=== PATIENT | female | born 1990 | race Caucasian/White ===

== ENCOUNTER 2016-08-22 13:17 | Inpatient (IN) | payer BC ==
[2016-08-22] MEDS ORDERED: Aluminum Hydroxide/Magnesium Hydroxide/Simethicone Susp 30 ML Cup PO PRN (15:27)
[2016-08-22] MEDS ORDERED: Ondansetron 4 MG/2 ML SDV IVPUSH PRN (15:27)
[2016-08-22] MEDS ORDERED: Lidocaine 1% 50 ML MDV INJECT PRN (15:27)
[2016-08-22] MEDS ORDERED: Nalbuphine 20 MG/1 ML Amp IVPUSH PRN (15:27)
[2016-08-22] MEDS ORDERED: Lactated Ringers 1,000 ML IV SCH (15:30)
[2016-08-22] MEDS ORDERED: Oxytocin/Lactated Ringers 10 UNIT/1,000 ML BAG IV SCH ×2 (15:30→15:45)
--- NOTE | 2016-08-22 21:27 | PCM.LDHP ---
L&D History of Present Illness - General Date of Service: 08/22/16 Admit Problem/Dx: Patient Status Order with Admit Dx/Problem 08/22/16 15:28 Patient Status [ADT] Routine Admission Diagnosis/Problem Admission Diagnosis/Problem 08/22/16 21:17 37-6/7 week intrauterine , spontaneous rupture membranes, early labor Source of Information: Patient History Limitations: Reports: No limitations - History of Present Illness Introduction:: History of present illness: Patient is a 6-year-old 1 para 0 white female who is set at -2017 placer not 37-6/7 6 gestational age upon admission to labor and delivery. Her CEDRIC is set by an early ultrasound on 01/13/2016 at 6- 1/7 weeks gestation. Last menstrual period was not definite on 11/29/2015. Patient has had 3 other ultrasounds supporting her earliest ultrasound dates. She was seen in clinic with complaints of moistness near the vagina. Amniosure was positive and visualization of the vagina and perineum was positive for of amniotic fluid. She is admitted for labor and the Pitocin was started. SECOND BUTLER history 1 para 0 CEDRIC 09/06/2016. Patient had group B strep screen which was negative. Had dropped to hemoglobin at second trimester but was noted to have a hemoglobin 13.1 on 08/11/2016. Fluid vaccine was administered on 03/01/2016. She plans to nurse. T. dap was given on 06/22/2016. Patient's first visit was on 03/01/2016. She was seen on regular basis and made good fundal height growth. Her weight increased from 181 pounds 215.6 pounds 4 834.6 pound weight gain. Laboratory testing and shows blood which is O+, negative and risking. Platelets of her spelled as over 227. She is rubella immune. RPR is nonreactive. Hepatitis B and HIV assays are negative. GC and Chlamydia were negative. Second trimester testing showed a one-hour gtt. which was elevated at 155. Her 3 her GTT however was normal at 78 at fasting, 147 at one hour, 1:15 at 2R and 45 at 3 hour. Her platelet count on 08/11/2001 was 238,000. Group B strep screen was negative. Allergies: shellfish Medications: 1. Ferrous sulfate 325 mg per day 2. Multivitamins daily 3 the folic acid 1 mg daily Past medical history: Unremarkable. Past surgical history: 1. Cyst removed from her cervix in 2009 2. Tonsillectomy 1998 Family history: 2 brothers age 23 and 18 a live and well. Mother age 56 alive and well. Father age 53 alive and well. Maternal grandmother age 70 a live and well except for depression/dementia. Maternal grandmother age 85 alive and well. Paternal grandmother age 73 alive and well. Paternal grandfather age 73 her condition, history of smoking. No , anesthesia, bleeding or blood clotting comes noted in the family. Social history: Patient is . Lives in [place]. is Ben[place]. She denies any significant loss of alcohol, drugs or tobacco. Review of systems: Skin-negative Respiratory-negative Cardiovascular-negative Breasts-changes consistent with GI-negative -changes consistent with Neurologic-negative Musculoskeletal-negative. Physical exam On last evaluation in clinic earlier today patient's height was 5 feet 10 her weight was 215 pounds. heart rate is 1:30. Pregravid weight was 181. In general patient is a well-developed, well-nourished, pleasant thin of stated age in no acute distress. She is alert and oriented x3 and appears stated age. Skin is warm and dry without lesions HEENT, neck and back within normal is Lungs are clear with good breath sounds in all rodriguez. Cardiovascular exam shows regular rate and rhythm without murmurs. Breast exam is deferred at this time-was done at first and was found to be normal. Abdomen shows fundal height consistent with dates. Baby in a vertex presentation. Cervix on admission to the hospital was 4 cm, 90% effaced, soft, midposition, - 3 station. Extremities and neurological exam grossly within normal limits. - Related Data Allergies/Adverse Reactions: Allergies Allergy/AdvReac Type Severity Reaction Status Date / Time shellfish derived Allergy Severe Other Verified 08/22/16 15:27 Home Medications: Home Meds Folic Acid 0.8 mg PO DAILY 08/22/16 [History] Iron 18 mg PO BEDTIME 08/22/16 [History] PNV95/Ferrous Fumarate/FA [ Tablet] 1 each PO DAILY 08/22/16 [History] Past Medical History SECOND BUTLER History: Reports: , Other (see below) Other OB/BYN History: cyst removed from cervix 2009 - Past Surgical History HEENT Surgical History: Reports: Tonsillectomy Social & Family History - Family History Family Medical History: Noncontributory - Tobacco Use Smoking Status *Q: Never Smoker - Caffeine Use Caffeine Use: Reports: Other Other Caffeine Use: minimal - Recreational Drug Use Recreational Drug Use: No H&P Review of Systems - Review of Systems: Review Of Systems: See Below L&D Exam - Exam Exam: See Below - Vital Signs Vital Signs: Last Vital Signs Temp 37.4 C 08/22/16 15:27 Pulse 117 H 08/22/16 15:27 Resp 18 08/22/16 15:27 BP 122/86 08/22/16 15:27 Pulse Ox Weight: 97.84 kg - Patient Data Lab Results last 24 hrs: Laboratory Results - last 24 hr 08/22/16 08/22/16 08/22/16 Range/Units 13:52 14:30 16:00 WBC 8.97 (3.98-10.04) K/mm3 RBC 4.30 (3.98-5.22) M/mm3 Hgb 12.2 (11.2-15.7) gm/L Hct 36.5 (34.1-44.9) % MCV 84.9 (79.4-94.8) fl MCH 28.4 (25.6-32.2) pg MCHC 33.4 (32.2-35.5) g/dl RDW Std Deviation 50.3 H (36.4-46.3) fL Plt Count 253 (182-369) K/mm3 MPV 11.1 (9.4-12.3) fl Neut % (Auto) 76.2 H (34.0-71.1) % Lymph % (Auto) 14.9 L (19.3-51.7) % Schleicher % (Auto) 7.8 (4.7-12.5) % Eos % (Auto) 0.7 (0.7-5.8) Baso % (Auto) 0.2 (0.1-1.2) % Neut # (Auto) 6.83 H (1.56-6.13) K/mm3 Lymph # (Auto) 1.34 (1.18-3.74) K/mm3 Schleicher # (Auto) 0.70 H (0.24-0.36) K/mm3 Eos # (Auto) 0.06 (0.04-0.36) K/mm3 Baso # (Auto) 0.02 (0.01-0.08) K/mm3 Urine Color Light yellow (Yellow) Urine Appearance Clear (Clear) Urine pH 6.0 (5.0-8.0) Ur Specific Michael 1.010 (1.005-1.030) Urine Protein Negative (Negative) Urine Glucose (UA) Negative (Negative) Urine Ketones Negative (Negative) Urine Occult Blood Negative (Negative) Urine Nitrite Negative (Negative) Urine Bilirubin Negative (Negative) Urine Urobilinogen 0.2 (0.2-1.0) Ur Leukocyte Esterase Trace H (Negative) Membrane Rupture Positive H Result Diagrams: 08/22/16 16:00 Problem List Initiated/Reviewed/Updated: Yes Orders Last 24hrs: Active Orders 24 hr Category Date Time Status Patient Status [ADT] Routine ADT 08/22/16 15:28 Active Activity as Tolerated [RC] PFP Care 08/22/16 15:27 Active Communication Order [RC] ASDIRECTED Care 08/22/16 15:27 Active Notify Provider [RC] PFP Care 08/22/16 15:27 Active Notify Provider [RC] PRN Care 08/22/16 15:27 Active Vital Signs [RC] PER UNIT ROUTINE Care 08/22/16 15:27 Active Clear Liquid Diet [DIET] Diet 08/22/16 Lunch Active Alum Hydrox/Mag Hydrox/Simeth [Mag-Al Plus] Med 08/22/16 15:27 Active 30 ml PO Q8H PRN Lactated Ringers [Ringers, Lactated] 1,000 ml Med 08/22/16 15:30 Active IV ASDIRECTED Lidocaine 1% [Xylocaine 1%] Med 08/22/16 15:27 Active 50 ml INJECT ONETIME PRN Nalbuphine [Nubain] Med 08/22/16 15:27 Active 10 mg IVPUSH Q2H PRN Ondansetron [Zofran] Med 08/22/16 15:27 Active 4 mg IVPUSH Q4H PRN Oxytocin/Lactated Ringers [Pitocin in LR 10 Units/1,000 Med 08/22/16 15:30 Active ML] 10 unit in 1,000 ml IV ASDIRECTED Oxytocin/Lactated Ringers [Pitocin in LR 10 Units/1,000 Med 08/22/16 15:45 Active ML] 10 unit in 1,000 ml IV TITRATE Electronic Heart Tones Ext w TOCO [WOMSER] Oth 08/22/16 15:27 Ordered Routine Electronic Heart Tones Internal [WOMSER] Per Unit Oth 08/22/16 15:27 Ordered Routine Peripheral IV Insertion Adult [OM.PC] Routine Oth 08/22/16 15:27 Ordered Resuscitation Status Routine Resus Stat 08/22/16 15:27 Ordered Medication Orders Al Hydroxide/Mg Hydroxide (Mag-Al Plus) 30 ml PO Q8H PRN PRN Reason: Heartburn Lactated Ringer's (Ringers, Lactated) 1,000 mls @ 100 mls/hr IV ASDIRECTED MARIZA Last Admin: 08/22/16 15:57 Dose: 100 mls/hr Oxytocin/Lactated Ringer's (Pitocin In Lr 10 Units/1,000 Ml) 10 unit in 1,000 mls @ 500 mls/hr IV ASDIRECTED MARIZA Oxytocin/Lactated Ringer's (Pitocin In Lr 10 Units/1,000 Ml) 10 unit in 1,000 mls @ 12 mls/hr IV TITRATE MARIZA; 2 MUNITS/MIN PRN Reason: Protocol Last Titration: 08/22/16 20:07 Dose: 5 munits/min, 30 mls/hr Titration: 08/22/16 19:13 Dose: 12 munits/min, 72 mls/hr Titration: 08/22/16 18:34 Dose: 10 munits/min, 60 mls/hr Titration: 08/22/16 18:04 Dose: 8 munits/min, 48 mls/hr Titration: 08/22/16 17:32 Dose: 6 munits/min, 36 mls/hr Titration: 08/22/16 16:30 Dose: 4 munits/min, 24 mls/hr Admin: 08/22/16 15:57 Dose: 2 munits/min, 12 mls/hr Lidocaine HCl (Xylocaine 1%) 50 ml INJECT ONETIME PRN PRN Reason: perineal pain Nalbuphine HCl (Nubain) 10 mg IVPUSH Q2H PRN PRN Reason: Pain (moderate 4-6) Ondansetron HCl (Zofran) 4 mg IVPUSH Q4H PRN PRN Reason: Nausea/Vomiting Assessment/Plan Comment:: Assessment: 1. 37-6/7 week intrauterine , spontaneous rupture membranes, early labor 2. Group B strep screen negative 3. Patient desires to nurse 4. Patient desires naturally her blood is accepting of analgesia 5. Patient is up-to-date regarding her T. dap and her flu vaccine. Plan: 1. Anticipate normal spontaneous vaginal delivery 2. Epidural or other analgesia when necessary for pain as per patient 3. Support nursing interest 4. IV Pitocin.
--- NOTE | 2016-08-22 21:32 | PCM.SN ---
- Free Text/Narrative Note: Ekaterina is a 26-year-old 1 now para 1001 white female at 37-6/7 weeks gestational age with an EDC of 09/06/2001 was admitted earlier this afternoon with spontaneous rupture of membranes and a positive amniosure test. She rapidly progressed to complete cervical dilation. She delivered a viable, 2810 g (6 pound 3.1 ounce) female at 2050 hours on 08/22/2016. She had a midline second-degree perineal laceration which was repaired with 3-0 Monocryl suture in routine fashion. Baby delivered in a left occiput anterior position. The baby is 18 inches in length and had Apgars of 9 and 9 After adequate anesthesia with 43 cc of lidocaine 1% injected locally in the laceration site laceration was closed in a routine fashion using 3-0 Monocryl. The placenta delivered just immediately before that in a Butcher fashion. It appeared complete with a somewhat eccentric cord origin. There were 3 vessels in the umbilical cord. As the blood loss was 100 cc. Pitocin was given IV after the delivery of the baby. Condition: Good. Patient plans to nurse.
[2016-08-22] MEDS: Ibuprofen 600 MG Tab PO PRN (23:00)
[2016-08-22] MEDS ORDERED: Acetaminophen 325 MG Tab PO PRN (23:33)
[2016-08-22] MEDS ORDERED: Docusate Sodium 100 MG Cap PO PRN (23:33)
[2016-08-22] MEDS ORDERED: Witch Hazel Medicated Pads 100/Jar TOP PRN (23:33)
[2016-08-22] MEDS ORDERED: Lanolin 100% Cream 7 GM Tube TOP PRN (23:33)
[2016-08-22] MEDS ORDERED: Benzocaine/Menthol 20%-0.5% Spray 56 GM Canister TOP PRN (23:33)
[2016-08-23] MEDS: Ibuprofen 600 MG Tab PO PRN ×2 (07:06→21:00)
--- NOTE | 2016-08-23 09:09 | PCM.SN ---
- Free Text/Narrative Note: The patient is doing well exam. Has minimal lochia. Some discomfort secondary to delivery. This is managed with conservative therapy. Patient is afebrile, vital signs stable. Abdomen is flat, soft, uterus at the umbilicus, firm and nontender. Extremities show no significant edema or pain. CBC shows a white count of 12.15. Hemoglobin 11.5. Hematocrit 34.5 and platelets 228,000. Assessment: Post day 1-doing well. Nursing going well. Plan: Routine care. Home tomorrow.
[2016-08-23] MEDS: Prenatal Multivitamin with Calcium/Folic Acid/Iron Tab PO SCH (10:26)
[2016-08-24 03:26] VITALS: BP 117/74
--- NOTE | 2016-08-24 06:10 | PCM.DCSUM1 ---
Discharge Summary - Hospital Course Free Text/Narrative:: Ekaterina is a 26-year-old 1 now para 1001 white female at 37-6/7 weeks gestational age with an EDC of 09/06/2001 was admitted early on the day of delivery with spontaneous rupture of membranes and a positive amniosure test. She rapidly progressed to complete cervical dilation. She delivered a viable, 2810 g (6 pound 3.1 ounce) female at 2050 hours on 08/22/2016. She had a midline second-degree perineal laceration which was repaired with 3-0 Monocryl suture in routine fashion. Baby delivered in a left occiput anterior position. The baby is 18 inches in length and had Apgars of 9 and 9 After adequate anesthesia with 43 cc of lidocaine 1% injected locally in the laceration site laceration was closed in a routine fashion using 3-0 Monocryl. The placenta delivered just immediately before that in a Butcher fashion. It appeared complete with a somewhat eccentric cord origin. There were 3 vessels in the umbilical cord. As the blood loss was 100 cc. Pitocin was given IV after the delivery of the baby. Patient plans to nurse. Post patient was done well. She is nursing without problems, ambulating well and has minimal lochia. She is desiring discharge day on day 2. - Discharge Data Discharge Date: 08/24/16 Discharge Disposition: Home, Self-Care 01 Condition: Good - Patient Instructions Diet: Regular Diet as Tolerated (Nursing diet was increased calcium and calories as directed.) Activity: As Tolerated (No intercourse or tampons until bleeding resolves.) Driving: May Drive Today Showering/Bathing: May Shower (May take a bath) Notify Provider of: Fever, Increased Pain, Swelling and Redness, Nausea and/or Vomiting - Discharge Plan Home Medications: Home Meds Folic Acid 0.8 mg PO DAILY 08/22/16 [History] Iron 18 mg PO BEDTIME 08/22/16 [History] PNV95/Ferrous Fumarate/FA [ Tablet] 1 each PO DAILY 08/22/16 [History] Ibuprofen [IJD: Ibuprofen] 600 mg PO Q4H PRN #30 tablet 08/24/16 [Rx] Referrals: Joseph Byrne MD [Primary Care Provider] - ([facility] - Discharge Summary/Plan Comment DC Time >30 min.: No Discharge Summary/Plan Comment: Discharge instructions: 1. Discharge home 2. Regular, high fiber, nursing diet with increased calories and calcium as recommended. 3. Precautions given concern increased pain, bleeding, temperature, signs/ symptoms of DVT/PE. 4. Medications per medication was printed, discussed with and given to the patient. 5. Return to clinic-Dr. Byrne-6 weeks-[facility]. Diagnosis: 37 week intrauterine -delivered Condition: Good - Patient Data Vitals - Most Recent: Last Vital Signs Temp 36.3 C 08/24/16 02:49 Pulse 81 08/24/16 02:49 Resp 16 08/24/16 02:49 BP 117/74 08/24/16 02:49 Pulse Ox 97 08/24/16 02:49 Weight - Most Recent: 97.84 kg I&O - Last 24 hours: Intake & Output 08/23/16 08/23/16 08/24/16 14:59 22:59 06:59 Intake Total 120 120 Balance 120 120 Lab Results - Last 24 hrs: Laboratory Results - last 24 hr 08/23/16 Range/Units 06:28 WBC 12.15 H (3.98-10.04) K/mm3 RBC 4.04 (3.98-5.22) M/mm3 Hgb 11.5 (11.2-15.7) gm/L Hct 34.5 (34.1-44.9) % MCV 85.4 (79.4-94.8) fl MCH 28.5 (25.6-32.2) pg MCHC 33.3 (32.2-35.5) g/dl RDW Std Deviation 51.0 H (36.4-46.3) fL Plt Count 228 (182-369) K/mm3 MPV 11.2 (9.4-12.3) fl Med Orders - Current: Current Medications Acetaminophen (Tylenol) 650 mg PO Q4H PRN PRN Reason: mild pain or fever Benzocaine/Menthol (Dermoplast Pain Relief [place]) 0 gm TOP ASDIRECTED PRN PRN Reason: Perineal Comfort Measure Last Admin: 08/22/16 23:00 Dose: 1 applic Docusate Sodium (Colace) 100 mg PO BID PRN PRN Reason: Constipation Emollient Ointment (Lansinoh Hpa) 0 gm TOP ASDIRECTED PRN PRN Reason: Sore Nipples Ibuprofen (Motrin) 600 mg PO Q4H PRN PRN Reason: Mild pain or fever Last Admin: 08/23/16 21:00 Dose: 600 mg Prenat Multivit/Vardaman/Iron/Folic Ac ( Plus Iron) 1 each PO DAILY MARIZA Last Admin: 08/23/16 10:26 Dose: 1 each Witch Mariela (Tucks) 1 pad TOP ASDIRECTED PRN PRN Reason: Hemorrhoid pain Last Admin: 08/22/16 23:00 Dose: 1 applic Discontinued Medications Al Hydroxide/Mg Hydroxide (Mag-Al Plus) 30 ml PO Q8H PRN PRN Reason: Heartburn Lactated Ringer's (Ringers, Lactated) 1,000 mls @ 100 mls/hr IV ASDIRECTED MARIZA Last Admin: 08/22/16 15:57 Dose: 100 mls/hr Oxytocin/Lactated Ringer's (Pitocin In Lr 10 Units/1,000 Ml) 10 unit in 1,000 mls @ 500 mls/hr IV ASDIRECTED MARIZA Last Admin: 08/22/16 20:55 Dose: 500 mls/hr Oxytocin/Lactated Ringer's (Pitocin In Lr 10 Units/1,000 Ml) 10 unit in 1,000 mls @ 12 mls/hr IV TITRATE MARIZA; 2 MUNITS/MIN PRN Reason: Protocol Last Titration: 08/22/16 20:30 Dose: 0 munits/min, 0 mls/hr Lidocaine HCl (Xylocaine 1%) 50 ml INJECT ONETIME PRN PRN Reason: perineal pain Last Admin: 08/22/16 20:55 Dose: 50 ml Nalbuphine HCl (Nubain) 10 mg IVPUSH Q2H PRN PRN Reason: Pain (moderate 4-6) Ondansetron HCl (Zofran) 4 mg IVPUSH Q4H PRN PRN Reason: Nausea/Vomiting *Q Meaningful Use (DIS) - VTE *Q VTE Criteria *Q: - Stroke *Q Stroke Criteria *Q: - AMI *Q AMI Criteria *Q:
[2016-08-24] MEDS: Prenatal Multivitamin with Calcium/Folic Acid/Iron Tab PO SCH (10:37)
== END 2016-08-24 10:30 | disposition home or self-care (01) | DRG 560 ==
LOC: JD.WOMH 13:17 → JD.OB 15:12 → OBSVTOIN 20:50 → JD.OB 20:50
PROVIDERS: ADMIT Obstetrics & Gynecology; ATTEND Obstetrics & Gynecology
PROC: 10E0XZZ Delivery of Products of Conception, External Approach (ICD-10-PCS; principal; 2016-08-22)
PROC: 0KQM0ZZ Repair Perineum Muscle, Open Approach (ICD-10-PCS; 2016-08-22)
DX: O42.92 Full-term premature rupture of membranes, unspecified as to length of time between rupture and onset of labor (principal); O70.1 Second degree perineal laceration during delivery; Z3A.38 38 weeks gestation of pregnancy; Z37.0 Single live birth
CPT/HCPCS: 36415; 81003; 84112; 85025; 85027; A9270-GY; J2590; J7120